=== PATIENT | female | born 1960 | race African-American/Black ===

== ENCOUNTER 2017-11-06 22:47 | Inpatient (IN) | payer BC ==
[~2017-11-06] VITALS: Ht 157.5 cm; Wt 81.4 kg
[~2017-11-06 22:47] MED LIST: AMLODIPINE BESY10 MG PO; AMOXICILLIN500 MG PO; APRESOLINE25 MG PO; AZOR 5/20 MG1 TABLET PO; CARVEDILOL12.5 MG PO; CARVEDILOL25 MG PO; CATAPRES0.1 MG PO; CATAPRES0.2 MG PO; CLARITHROMYCIN500 MG PO; CLOPIDOGREL75 MG PO; COREG6.25 M1 PO; Coreg PO; ELIQUIS2.5 MG PO; ELIQUIS5 MG PO; EPIPEN ADU0.3 MG/0.3 IM; Ecotrin PO; Effient PO; FERROUS SULFAT325 MG PO; GLIMEPIRIDE1 MG PO; GLIPIZIDE5 MG PO; HYDROCHLOROTHIA25 MG PO; HYGROTON25 MG PO; IRON325 MG PO; LEVAQUIN500 MG PO; LIPITOR40 MG PO; LISINOPRIL20 MG PO; LISINOPRIL40 MG PO; LO-DOSE ASPIRIN81 M1 PO; LOTREL 10/41 CAPSULE PO; LOTREL 5/201 CAPSUL1 PO; Levaquin PO; Lipitor PO; METFORMIN HCL850 MG PO; Maalox, Mylanta PO; NIFEREX-150,FE150 MG PO; NITROSTAT,NITR0.4 M1 SL; NORVASC5 MG PO; PERCOCET 5/31 TABLET PO; PRAVACHOL40 MG PO; PRAVASTATIN SOD40 MG PO; PREDNISONE10 MG PO; TRIBENZOR 40-11 EAC1 PO; TRIBENZOR 40-51 EAC5 PO
[2017-11-06 23:26] LABS: BASOPHIL (%) 0.4 % (0-1); BASOPHIL COUNT 0.1 K/uL (0-0.1); EOSINOPHIL (%) 1.4 % (0-5); EOSINOPHIL COUNT 0.2 K/uL (0-0.3); HEMOGLOBIN 14.2 G/DL (11.9-15.5); IMMATURE GRANULOCYTE (%) 0.5 % (0.0-0.7); LYMPHOCYTE (%) 35.5 % (15-42); MCH 26.5 PG (29.0-34.0); MCHC 32.3 G/DL (30.0-36.0); MCV 82.1 FL (83-99); MONOCYTE (%) 4.7 % (3-12); MONOCYTE COUNT 0.7 K/uL (0-0.8); NEUTROPHIL (%) 57.5 % (45-76); NEUTROPHIL COUNT 8.2 K/uL (1.8-6.4); PLATELET COUNT 440 K/uL (156-360); RBC DIS.WIDTH-CV 15.2 % (11.8-14.6); RBC DIS.WIDTH-SD 45.8 % (39-53); RED BLOOD COUNT 5.36 M/uL (3.80-5.20); WHITE BLOOD COUNT 14.2 K/uL (4.1-10.2)
[2017-11-06 23:28] LABS: CARBON DIOXIDE (BICARBONATE) 32.4 MEQ/L (20-31)
[2017-11-06 23:38] LABS: CHLORIDE 100 mEq/L (99-109); POTASSIUM 3.6 mEq/L (3.7-5.4); SODIUM 139 mEq/L (136-147)
[2017-11-06 23:39] LABS: GLUCOSE 237 mg/dL (70-99)
[2017-11-06 23:43] LABS: CREATININE 1.2 mg/dL (0.6-1.3); GFR ESTIMATE (CALCULATED) > 59 mL/min/
[2017-11-06 23:44] LABS: UREA NITROGEN (BUN) 18 mg/dL (9-23)
[2017-11-06 23:48] LABS: TROP-I INTERPRETATION NEGATIVE; TROPONIN-I 0.07 ng/mL (0.0-0.30)
[2017-11-07] MEDS ORDERED: EPIPEN ADU0.3 MG/0.3 IM (09:25)
[2017-11-07] MEDS ORDERED: METFORMIN HCL1000 MG PO (09:25)
[2017-11-07] MEDS ORDERED: POTASSIUM CHLO20 ME2 PO (09:27)
[2017-11-07] MEDS ORDERED: PRAVASTATIN SOD80 MG PO (09:27)
[2017-11-07] MEDS ORDERED: TOPROL XL50 MG PO (09:27)
[2017-11-07 09:36] VITALS: BP 171/83
[2017-11-07 16:18] VITALS: BP 162/85
[2017-11-07 19:50] VITALS: BP 185/98
[2017-11-07 23:15] VITALS: BP 164/79
[2017-11-08 03:50] VITALS: BP 140/70
[2017-11-08 05:48] LABS: BASOPHIL (%) 0.2 % (0-1); EOSINOPHIL (%) 2.6 % (0-5); EOSINOPHIL COUNT 0.2 K/uL (0-0.3); HEMATOCRIT 35.5 % (36.0-46.0); IMMATURE GRANULOCYTE (%) 0.2 % (0.0-0.7); LYMPHOCYTE (%) 29.2 % (15-42); LYMPHOCYTE COUNT 2.4 K/uL (1.0-2.8); MCH 26.3 PG (29.0-34.0); MCHC 32.1 G/DL (30.0-36.0); MONOCYTE (%) 5.5 % (3-12); MONOCYTE COUNT 0.4 K/uL (0-0.8); NEUTROPHIL (%) 62.3 % (45-76); PLATELET COUNT 323 K/uL (156-360); RBC DIS.WIDTH-CV 15.2 % (11.8-14.6); RED BLOOD COUNT 4.33 M/uL (3.80-5.20); WHITE BLOOD COUNT 8.1 K/uL (4.1-10.2)
[2017-11-08 05:54] LABS: HEMOGLOBIN 11.4 G/DL (11.9-15.5)
[2017-11-08 06:01] LABS: CHLORIDE 102 MEQ/L (99-109); CREATININE 0.9 MG/DL (0.6-1.3); GFR ESTIMATE (CALCULATED) > 59 mL/min/; GLUCOSE 166 mg/dL (70-99); POTASSIUM 2.9 MEQ/L (3.7-5.4); SODIUM 137 MEQ/L (136-147); UREA NITROGEN (BUN) 20 mg/dL (9-23)
[2017-11-08 08:08] VITALS: BP 164/80
[2017-11-08 11:31] VITALS: BP 143/83
[2017-11-08 15:11] VITALS: BP 164/98
[2017-11-08 19:42] VITALS: BP 159/87
[2017-11-08 23:08] VITALS: BP 133/86
[2017-11-09 04:35] VITALS: BP 159/80
[2017-11-09 05:44] LABS: BASOPHIL (%) 0.4 % (0-1); EOSINOPHIL (%) 2.2 % (0-5); EOSINOPHIL COUNT 0.2 K/uL (0-0.3); HEMATOCRIT 34.3 % (36.0-46.0); HEMOGLOBIN 11.1 G/DL (11.9-15.5); IMMATURE GRANULOCYTE (%) 0.5 % (0.0-0.7); LYMPHOCYTE (%) 29.7 % (15-42); LYMPHOCYTE COUNT 2.5 K/uL (1.0-2.8); MCH 26.6 PG (29.0-34.0); MCHC 32.4 G/DL (30.0-36.0); MCV 82.3 FL (83-99); MONOCYTE (%) 5.9 % (3-12); MONOCYTE COUNT 0.5 K/uL (0-0.8); NEUTROPHIL (%) 61.3 % (45-76); NEUTROPHIL COUNT 5.1 K/uL (1.8-6.4); PLATELET COUNT 314 K/uL (156-360); RBC DIS.WIDTH-CV 15.4 % (11.8-14.6); RBC DIS.WIDTH-SD 46.1 % (39-53); RED BLOOD COUNT 4.17 M/uL (3.80-5.20); WHITE BLOOD COUNT 8.3 K/uL (4.1-10.2)
[2017-11-09 05:50] LABS: CHLORIDE 102 MEQ/L (99-109); POTASSIUM 3.1 MEQ/L (3.7-5.4); SODIUM 138 MEQ/L (136-147)
[2017-11-09 05:57] LABS: CREATININE 0.9 MG/DL (0.6-1.3); GFR ESTIMATE (CALCULATED) > 59 mL/min/; UREA NITROGEN (BUN) 18 mg/dL (9-23)
[2017-11-09 06:00] LABS: GLUCOSE 319 mg/dL (70-99)
[2017-11-09 08:09] VITALS: BP 172/102
[2017-11-09 12:55] VITALS: BP 150/90
[2017-11-09] MEDS ORDERED: CEFTIN500 MG PO (14:32)
[2017-11-09] MEDS ORDERED: VENTOLIN HFA18 GM IH (14:33)
[2017-11-09 15:33] VITALS: BP 154/93
== END 2017-11-09 16:53 | disposition home or self-care (01) | DRG 194 ==
LOC: EME 22:47 → 4EAST 11-07 04:06 → EDOF 11-07 04:06 → ENRESERV 11-07 04:33 → 4EAST 11-07 09:25 → ENPENDDIS 11-09 → 4EAST 11-09 16:53
PROVIDERS: Emergency Medicine; Hospitalist; Internal Medicine
DX: J18.9 Pneumonia, unspecified organism (principal); J90 Pleural effusion, not elsewhere classified; E87.6 Hypokalemia; I11.0 Hypertensive heart disease with heart failure; E11.9 Type 2 diabetes mellitus without complications; E78.5 Hyperlipidemia, unspecified; I25.10 Atherosclerotic heart disease of native coronary artery without angina pectoris; I27.20 Pulmonary hypertension, unspecified; I48.0 Paroxysmal atrial fibrillation; D64.9 Anemia, unspecified; I50.9 Heart failure, unspecified; I35.1 Nonrheumatic aortic (valve) insufficiency; Z79.84 Long term (current) use of oral hypoglycemic drugs; Z95.5 Presence of coronary angioplasty implant and graft; Z79.51 Long term (current) use of inhaled steroids; Z79.82 Long term (current) use of aspirin; Z91.14 Patient's other noncompliance with medication regimen; Z91.013 Allergy to seafood; Z90.49 Acquired absence of other specified parts of digestive tract; Z82.49 Family history of ischemic heart disease and other diseases of the circulatory system; Z83.3 Family history of diabetes mellitus; Z80.49 Family history of malignant neoplasm of other genital organs
CPT/HCPCS: 36415; 71045; 71275; 74174; 80048; 80061; 80069; 81003; 82043; 82550; 82565; 82570; 82728; 82803; 82948; 83036; 83540; 83605; 83880; 84450; 84460; 84484; 84520; 85025; 87040; 87070; 87205; 87449; 93005; 94640; 94799; 99202; 99281; 99285; J0456; J0696; J1650; J1815; J1940; J7030

== ENCOUNTER 2018-02-13 10:04 | Inpatient (IN) | payer OTHER ==
[~2018-02-13] VITALS: Ht 157.5 cm; Wt 85.0 kg
[~2018-02-13 10:04] MED LIST changes: +CEFTIN500 MG PO; +METFORMIN HCL1000 MG PO; +POTASSIUM CHLO20 ME2 PO; +PRAVASTATIN SOD80 MG PO; +TOPROL XL50 MG PO; +VENTOLIN HFA18 GM IH
[2018-02-13 11:01] LABS: HEMATOCRIT 37.1 % (36.0-46.0); HEMOGLOBIN 12.3 G/DL (11.9-15.5); MCH 27.8 PG (29.0-34.0); MCHC 33.2 G/DL (30.0-36.0); MCV 83.9 FL (83-99); NRBC (%) 0.3 /100 WBC (0-0); PLATELET COUNT 323 K/uL (156-360); RBC DIS.WIDTH-CV 16.2 % (11.8-14.6); RBC DIS.WIDTH-SD 49.4 % (39-53); RED BLOOD COUNT 4.42 M/uL (3.80-5.20); WHITE BLOOD COUNT 9.9 K/uL (4.1-10.2)
[2018-02-13 11:11] LABS: CHLORIDE 100 mEq/L (99-109); POTASSIUM 3.1 mEq/L (3.7-5.4); SODIUM 138 mEq/L (136-147)
[2018-02-13 11:12] LABS: GLUCOSE 258 mg/dL (70-99)
[2018-02-13 11:16] LABS: CREATININE 0.9 mg/dL (0.6-1.3); GFR ESTIMATE (CALCULATED) > 59 mL/min/
[2018-02-13 11:17] LABS: UREA NITROGEN (BUN) 12 mg/dL (9-23)
[2018-02-13 11:25] LABS: TROP-I INTERPRETATION NEGATIVE; TROPONIN-I 0.04 ng/mL (0.0-0.30)
[2018-02-13 14:48] VITALS: BP 180/112
[2018-02-13] MEDS ORDERED: BENICAR40 MG PO (15:01)
[2018-02-13] MEDS ORDERED: AMLODIPINE BESY10 MG PO (15:02)
[2018-02-13] MEDS ORDERED: HYDROCHLOROTHIA25 MG PO (15:03)
[2018-02-13] MEDS ORDERED: ONGLYZA5 MG PO (15:03)
[2018-02-13] MEDS ORDERED: AMARYL2 MG PO (15:04)
[2018-02-13 18:00] VITALS: BP 235/112
[2018-02-13 19:08] LABS: TROP-I INTERPRETATION POSITIVE; TROPONIN-I 1.59 ng/mL (0.0-0.30)
[2018-02-13 20:00] VITALS: BP 192/93
[2018-02-13 20:45] LABS: INTER. NORMALIZED RATIO 1.1
[2018-02-13 20:47] LABS: PTT 28.8 SEC (25-37)
[2018-02-13 20:55] VITALS: BP 168/80
[2018-02-13 22:16] LABS: TROP-I INTERPRETATION POSITIVE; TROPONIN-I 1.65 ng/mL (0.0-0.30)
[2018-02-14] VITALS: BP 162/90
[2018-02-14 01:40] LABS: HEMATOCRIT 34.2 % (36.0-46.0); HEMOGLOBIN 11.3 G/DL (11.9-15.5); MCH 28.2 PG (29.0-34.0); MCV 85.3 FL (83-99); NRBC (%) 0.2 /100 WBC (0-0); PLATELET COUNT 323 K/uL (156-360); RBC DIS.WIDTH-CV 16.5 % (11.8-14.6); RBC DIS.WIDTH-SD 51.1 % (39-53); RED BLOOD COUNT 4.01 M/uL (3.80-5.20); WHITE BLOOD COUNT 11.5 K/uL (4.1-10.2)
[2018-02-14 02:06] LABS: CHLORIDE 104 mEq/L (99-109); SODIUM 141 mEq/L (136-147)
[2018-02-14 02:12] LABS: CREATININE 0.9 mg/dL (0.6-1.3); GFR ESTIMATE (CALCULATED) > 59 mL/min/
[2018-02-14 02:16] LABS: GLUCOSE 83 mg/dL (70-99)
[2018-02-14 02:29] LABS: UREA NITROGEN (BUN) 21 mg/dL (9-23)
[2018-02-14 04:28] VITALS: BP 176/77
[2018-02-14 07:35] VITALS: BP 160/96
[2018-02-14 09:01] LABS: HEMOGLOBIN A1c (GLYCOHEMOGLOB) 7.8 % (Below 5.7)
[2018-02-14 11:03] VITALS: BP 193/75
[2018-02-14 20:55] VITALS: BP 131/74
[2018-02-14 21:00] VITALS: BP 169/87
[2018-02-15 05:36] LABS: HEMATOCRIT 34.2 % (36.0-46.0); HEMOGLOBIN 10.6 G/DL (11.9-15.5); MCH 26.5 PG (29.0-34.0); MCV 85.5 FL (83-99); PLATELET COUNT 332 K/uL (156-360); RBC DIS.WIDTH-CV 17.2 % (11.8-14.6); RBC DIS.WIDTH-SD 53.1 % (39-53); WHITE BLOOD COUNT 9.7 K/uL (4.1-10.2)
[2018-02-15 05:53] VITALS: BP 188/88
[2018-02-15 05:57] VITALS: BP 159/78
[2018-02-15 08:35] VITALS: BP 141/76
[2018-02-15 09:33] LABS: CHLORIDE 100 MEQ/L (99-109); CREATININE 1.1 MG/DL (0.6-1.3); GFR ESTIMATE (CALCULATED) > 59 mL/min/; POTASSIUM 3.3 MEQ/L (3.7-5.4); SODIUM 141 MEQ/L (136-147); UREA NITROGEN (BUN) 25 mg/dL (9-23)
[2018-02-15 09:42] LABS: GLUCOSE 166 mg/dL (70-99)
[2018-02-15 11:45] VITALS: BP 210/96
[2018-02-15 13:59] VITALS: BP 158/86
== END 2018-02-15 15:20 | disposition short-term general hospital (02) | DRG 281 ==
LOC: EME 10:04 → EDOF 12:23 → ENRESERV 13:01 → 4EAST 14:28 → 4SOUTH 14:32 → ENRESERV 02-14 18:13 → 4EAST 02-14 20:35
PROVIDERS: Emergency Medicine; Hospitalist; Internal Medicine; Physician Assistant
DX: I21.4 Non-ST elevation (NSTEMI) myocardial infarction (principal); E87.6 Hypokalemia; I16.0 Hypertensive urgency; I11.0 Hypertensive heart disease with heart failure; E11.9 Type 2 diabetes mellitus without complications; I25.10 Atherosclerotic heart disease of native coronary artery without angina pectoris; E66.9 Obesity, unspecified; I42.9 Cardiomyopathy, unspecified; I27.20 Pulmonary hypertension, unspecified; E78.5 Hyperlipidemia, unspecified; I50.22 Chronic systolic (congestive) heart failure; I48.0 Paroxysmal atrial fibrillation; I25.2 Old myocardial infarction; Z79.01 Long term (current) use of anticoagulants; Z68.34 Body mass index [BMI] 34.0-34.9, adult; Z79.899 Other long term (current) drug therapy; Z79.4 Long term (current) use of insulin; Z95.5 Presence of coronary angioplasty implant and graft; Z91.19 Patient's noncompliance with other medical treatment and regimen; Z79.82 Long term (current) use of aspirin
CPT/HCPCS: 71045; 80048; 82948; 83036; 84484; 85027; 85347; 85610; 85730; 93005; 93306; C1769; C1887; C1894; J0360; J0461; J1644; J1815; J2250; J3010; J7040